=== PATIENT | male | born 1990 | race African-American/Black ===

== ENCOUNTER 2023-09-09 09:41 | Emergency (ER) | payer MEDICAID, SELFPAY ==
--- NOTE | ~2023-09-09 | XR_ITS ---
EXAMINATION: XR TOES, RIGHT CLINICAL INFORMATION: Small toe pain COMPARISON: None available. TECHNIQUE: 3 views of the right toes were obtained. FINDINGS: The bones of the foot have normal density and alignment. The joint spaces are normal. No erosions or periostitis. No fracture, subluxation or overt soft tissue swelling. The proximal and distal phalanges of the fifth toe are intact. No radiopaque foreign body. XR/XR toe RT min 2V IMPRESSION: Normal radiographic examination.
[2023-09-09 09:49] VITALS: BP 138/101; PULSE 76; RESP 16; TEMP 36.3; O2SAT 97; BMI 22.2
--- NOTE | 2023-09-09 14:09 | ED.LOWEXIN ---
HPI - Extremity Injury (Lower) General Chief Complaint: Extremity Injury, Lower Stated Complaint: R toe pain Time Seen by Provider: 09/09/23 12:00 Source: patient, RN notes reviewed and old records reviewed Mode of arrival: ambulatory History of Present Illness ED Provider: Alondra Chakraborty PA-C [facility] Narrative: 33-year-old male no significant past medical history presenting to the ED complaining of right 5th toe pain x2 days, worsened with weight-bearing. Denies known injury/trauma or fall, twisting, numbness/tingling or weakness Related Data Allergies Allergy/AdvReac Type Severity Reaction Status Date / Time No Known Allergies Allergy Verified 09/09/23 09:51 [No Known Allergies*] Review of Systems Review of Systems: Constitutional: No Fever, No Chills ENT/Mouth: No Ear Pain, No sore throat, No Rhinorrhea, No Swallowing Difficulty Cardiovascular: No Chest Pain, No SOB Respiratory: No Cough Gastrointestinal: No Nausea, No Vomiting, No Diarrhea, No Constipation, No Abdominal pain Genitourinary: No Dysuria, No Urinary Frequency, No Hematuria, No Flank Pain Musculoskeletal: +joint pain, No Myalgias, No Joint Swelling Skin: No Skin Lesions, No rash Neuro: No Weakness, No Numbness, No Paresthesias Yes all other systems are reviewed and are negative Constitutional: Constitutional: Reports as per [facility] Past Medical History Attestation statement: The following information was validated with the patient. Source: old records reviewed Social History Social History Advance Directives: No Advance Directives Information Provided: No Physical Exam Vital Signs: Vital Signs: Last Vital Signs Temp 97.3 F 09/09/23 09:49 Pulse 76 09/09/23 09:49 Resp 16 09/09/23 09:49 BP 138/101 H 09/09/23 09:49 Pulse Ox 97 09/09/23 09:49 O2 Del Method Room Air 09/09/23 09:49 BMI result Body Mass Index 22.2 Const: General: cooperative, healthy appearing and no acute distress Orientation/consciousness: patient oriented x3 Limitations: no limitations HEENT: Head: Yes normal to inspection and Yes atraumatic Ears: hearing grossly normal bilaterally General nose exam: Normal external nose present Face and sinus: Yes normal facial exam Eyes: General: appearance normal, both eyes and all related structures EOM: EOMs intact bilaterally Neck: Neck: Yes normal visual inspection and Yes no meningeal signs Resp: Effort & Inspection: normal respiratory effort and no respiratory distress Cardio: Rate: regular rate Peripheral pulses: Peripheral pulses 2+ throughout GI: Inspection: Yes normal to inspection Palpation (GI): Soft to palpation, nontender, no guarding and not rigid Skin: Rashes: no rashes Wounds: no wounds Neuro: General: patient oriented x3, tone normal and no meningeal signs Cranial nerves: Yes CN's II-XII intact bilaterally Gait exam (Neuro): Normal gait present Extrem: Other: Right foot without appreciable deformity. Mild tenderness to right 5th toe. No erythema, fluctuance or induration. Neurovascularly intact General: Yes normal to inspection Course Course Course Narrative: XR toe RT min 2V IMPRESSION: Normal radiographic examination. -BP normalized upon repeat prior to discharge Results discussed with patient including worrisome signs and symptoms and strict return precautions, and when to return to the emergency department. They verbalized understanding and feel safe for discharge at this time. Medical Decision Making Medical Decision Making [facility] Narrative: 33-year-old male no significant past medical history presenting to the ED complaining of right 5th toe pain x2 days, worsened with weight-bearing. On exam hypertensive, NAD, nontoxic appearing, physical exam as noted above. Concern for occult fracture vs strain. No evidence of septic joint/arthritis. Unlikely plantar fasciitis Plan: X-ray Please refer to course for remaining clinical decision making, interpretation of labs/imaging results, and discussions with consultants and/or family members. Differential Diagnosis Differential Diagnoses: The differential diagnosis associated with the presentation includes As above Independent Interpretation I performed an independent interpretation of an: Plain X-Ray Radiology Impression Discussion of test interpretation with radiology: I have reviewed the radiologist's reading. External Record Review External record reviewed: Inpatient record, Office record, Outpatient record, Prior outpatient labs, Prior outpatient radiology, Primary care record and Outside ED record Tests considered The following testing was considered but not selected: As above Prescription Management I considered prescription management with: Pain Medication Discharge Plan Discharge Clinical Impression: Pain in toe Patient Disposition: Home, Self-Care Instructions: Arthralgia (ED) Additional Instructions: Your x-ray is unremarkable. Take Tylenol /Motrin as needed Follow-up with her doctor Referrals: ED Physician,Generic [Physician] - Yogesh Tavarez MD [Physician] - (as needed) Print Language: Salvadorean
== END 2023-09-09 14:22 | disposition home or self-care (01) ==
PROVIDERS: Emergency Provider Emergency Medicine
DX: M79.674 Pain in right toe(s) (principal)
CPT/HCPCS: 73660; 99281; 99283